=== PATIENT | male | born 1955 | race Hispanic/Latino ===

== ENCOUNTER 2018-06-07 08:52 | Outpatient (CLI) | payer MEDICARE, OTHER ==
--- NOTE | 2018-06-07 09:23 | Cat Scan Report ---
CT ABDOMEN PELVIS WITH CONTRAST: HISTORY: Prostate cancer. COMPARISON: CT abdomen pelvis report dated 07/14/13. TECHNIQUE: Helical CT in 1.25mm intervals following IV contrast. Sagittal and coronal reconstructions. FINDINGS: Lung bases: Normal. Liver: Mild diffuse fatty infiltration of the liver is again noted. No focal mass or enlargement. Biliary system: Normal. Pancreas: Normal. Spleen: Normal. Kidneys/ureters/bladder: The kidneys are normal size and position. 3 or 4 calyceal stones are noted in both kidneys measuring less than 5 mm. A 2.8 cm cyst is identified in the mid right kidney. A 3.9 cm cyst is identified in the midleft kidney the ureters and bladder are unremarkable. The prostate gland is normal size and contour. Adrenal glands: Normal. Aorta: Normal. Intestines: Within normal limits given no oral contrast was administered. Appendix: Appendectomy changes are suspected. Ascites: None. Adenopathy: None. Musculoskeletal: Intact. Moderate lumbar spondylosis. No suspicious bony lesion or fracture is identified. IMPRESSION: No evidence for metastatic disease in the abdomen and pelvis. Fatty infiltration of the liver. Bilateral renal stones, nonobstructing. Bilateral simple renal cysts.
[2018-06-07 10:01] LABS: Blood Urea Nitrogen 22 mg/dL (9-20)
== END 2018-06-07 08:53 | disposition home or self-care (01) ==
LOC: CT 08:52
DX: C61 Malignant neoplasm of prostate (principal); N28.1 Cyst of kidney, acquired; K76.0 Fatty (change of) liver, not elsewhere classified; N20.0 Calculus of kidney; M47.896 Other spondylosis, lumbar region; I10 Essential (primary) hypertension; E78.00 Pure hypercholesterolemia, unspecified; J45.909 Unspecified asthma, uncomplicated; E66.9 Obesity, unspecified; K21.9 Gastro-esophageal reflux disease without esophagitis
CPT/HCPCS: 36415; 74177; 82565; 84520; Q9967

== ENCOUNTER 2019-07-06 11:00 | Outpatient (CLI) | payer MEDICARE, OTHER | END 2019-07-06 11:01 | disposition home or self-care (01) | LOC: SLR 11:00 | PROVIDERS: ATTEND Internal Medicine | DX: G47.33 Obstructive sleep apnea (adult) (pediatric) (principal); R40.0 Somnolence; E66.9 Obesity, unspecified; E78.00 Pure hypercholesterolemia, unspecified; I10 Essential (primary) hypertension; J45.909 Unspecified asthma, uncomplicated; K21.9 Gastro-esophageal reflux disease without esophagitis | CPT/HCPCS: 95811 ==

== ENCOUNTER 2022-07-02 10:38 | Emergency (ER) | payer MEDICARE, OTHER ==
[2022-07-02 10:43] VITALS: BP 154/87
[2022-07-02] MEDS ORDERED: ACETAMINOPHEN 325 MG TAB PO PRN ×2 (13:10→14:04)
[2022-07-02] MEDS ORDERED: ONDANSETRON 4 MG/2 ML INJ IV PRN ×2 (13:10→14:04)
[2022-07-02] MEDS ORDERED: MORPHINE 2 MG/1 ML INJ IV PRN (13:13)
--- NOTE | 2022-07-02 13:16 | Progress Note ---
Assessment and Plan see uromaster severe r hydro needs stent urerteroscopy Subjective Date of service: 07/02/22 Objective - Constitutional Vitals: Vital Signs - 12hr 07/02/22 10:39 Temperature 98.4 F Pulse Rate 75 Respiratory 18 Rate Blood Pressure 154/87 [Left] O2 Sat by Pulse 97 Oximetry General appearance: Present: mild distress Medications & Allergies - Medications Allergies/Adverse Reactions: Allergies No Known Allergies Allergy (Verified 07/02/22 10:43) Home Medications: Home Medications Medication Instructions Recorded Confirmed Last Taken Type Esomeprazole Magnesium [NexIUM] 40 mg PO QDAY 06/07/14 06/14/14 06/13/14 08:00 History Ezetimibe [Zetia] 10 mg PO QDAY 06/07/14 06/14/14 06/13/14 08:00 History Fenofibrate,Micronized [Lofibra] 160 mg PO QDAY 06/07/14 06/14/14 06/13/14 08:00 History Glimepiride 1 mg PO DAILY 06/07/14 06/14/14 06/13/14 08:00 History Montelukast Sodium [Singulair] 10 mg PO DAILY 06/07/14 06/14/14 06/13/14 08:00 History Saxagliptin HCl/Metformin HCl 1 tab PO QPM 06/07/14 06/14/14 06/12/14 History [Kombiglyze XR 5-1,000 mg] Valsartan [Diovan] 160 mg PO QDAY 06/07/14 06/14/14 06/14/14 06:00 History Ofloxacin [Ocuflox 0.3%] 1 - 2 drops OP Q4HR #5 ml 12/15/16 Unknown Rx Active Medications: Generic Name Dose Route Start Last Admin Trade Name Freq PRN Reason Stop Dose Admin Acetaminophen 650 mg 07/02/22 13:10 Acetaminophen 325 Mg Tab PO Q4H PRN Pain MILD(1-3)/Fever >100.5/VAZQUEZ Ondansetron HCl 4 mg 07/02/22 13:10 Ondansetron 4 Mg/2 Ml Inj IV Q8H PRN Nausea And Vomiting Sodium Chloride 10 ml 07/02/22 22:00 Sodium Chloride 0.9% 10 Ml Flush Syringe IV BID AHSAN Sodium Chloride 10 ml 07/02/22 13:10 Sodium Chloride 0.9% 10 Ml Flush Syringe IV PRN PRN LINE FLUSH
--- NOTE | 2022-07-02 13:16 | Emergency Department Report ---
ED General Adult HPI - General Chief complaint: Abdominal Pain Stated complaint: KIDNEY STONE REMOVED PUI?: No Time Seen by Provider: 07/02/22 11:36 Source: patient Mode of arrival: Ambulatory Limitations: No Limitations - History of Present Illness Initial comments: Patient sent in by Dr. Adrian to have a cysto for a kidney stone.he was sent from urology office for severe right hydronephrosis -: Gradual Location: abdomen Radiation: non-radiation Associated Symptoms: denies other symptoms. denies: confusion, chest pain, cough - Related Data Home Medications Medication Instructions Recorded Confirmed Last Taken Esomeprazole Magnesium [NexIUM] 40 mg PO QDAY 06/07/14 06/14/14 06/13/14 08:00 Ezetimibe [Zetia] 10 mg PO QDAY 06/07/14 06/14/14 06/13/14 08:00 Fenofibrate,Micronized [Lofibra] 160 mg PO QDAY 06/07/14 06/14/14 06/13/14 08:00 Glimepiride 1 mg PO DAILY 06/07/14 06/14/14 06/13/14 08:00 Montelukast Sodium [Singulair] 10 mg PO DAILY 06/07/14 06/14/14 06/13/14 08:00 Saxagliptin HCl/Metformin HCl 1 tab PO QPM 06/07/14 06/14/14 06/12/14 [Kombiglyze XR 5-1,000 mg] Valsartan [Diovan] 160 mg PO QDAY 06/07/14 06/14/14 06/14/14 06:00 Previous Rx's Medication Instructions Recorded Last Taken Type Ofloxacin [Ocuflox 0.3%] 1 - 2 drops OP Q4HR #5 ml 12/15/16 Unknown Rx Allergies Allergy/AdvReac Type Severity Reaction Status Date / Time No Known Allergies Allergy Verified 07/02/22 10:43 ED Review of Systems ROS: Stated complaint: KIDNEY STONE REMOVED Other details as noted in HPI Constitutional: denies: chills, fever Eyes: denies: eye pain, eye discharge, vision change ENT: denies: ear pain, throat pain Respiratory: denies: cough, shortness of breath, wheezing Cardiovascular: denies: chest pain, palpitations Endocrine: no symptoms reported Gastrointestinal: denies: abdominal pain, nausea, diarrhea Genitourinary: denies: urgency, dysuria Musculoskeletal: denies: back pain, joint swelling, arthralgia Skin: denies: rash, lesions Neurological: denies: headache, weakness, paresthesias Psychiatric: denies: anxiety, depression Hematological/Lymphatic: denies: easy bleeding, easy bruising ED Past Medical Hx - Past Medical History Hx Hypertension: Yes (2001/PCP DR DANNY FRANKLIN) Hx Diabetes: No (PT DENIES DIABETES, STATES ON DIABETIC MEDS FOR WEIGHT LOSS.) Hx GERD: Yes Hx Kidney Stones: Yes Hx Asthma: Yes - Surgical History Additional Surgical History: right knee replacement - Social History Smoking Status: Never Smoker Substance Use Type: None - Medications Home Medications: Home Medications Medication Instructions Recorded Confirmed Last Taken Type Esomeprazole Magnesium [NexIUM] 40 mg PO QDAY 06/07/14 06/14/14 06/13/14 08:00 History Ezetimibe [Zetia] 10 mg PO QDAY 06/07/14 06/14/14 06/13/14 08:00 History Fenofibrate,Micronized [Lofibra] 160 mg PO QDAY 06/07/14 06/14/14 06/13/14 08:00 History Glimepiride 1 mg PO DAILY 06/07/14 06/14/14 06/13/14 08:00 History Montelukast Sodium [Singulair] 10 mg PO DAILY 06/07/14 06/14/14 06/13/14 08:00 History Saxagliptin HCl/Metformin HCl 1 tab PO QPM 06/07/14 06/14/14 06/12/14 History [Kombiglyze XR 5-1,000 mg] Valsartan [Diovan] 160 mg PO QDAY 06/07/14 06/14/14 06/14/14 06:00 History Ofloxacin [Ocuflox 0.3%] 1 - 2 drops OP Q4HR #5 ml 12/15/16 Unknown Rx ED Physical Exam - General Limitations: No Limitations General appearance: alert, in no apparent distress - Head Head exam: Present: atraumatic, normocephalic - Eye Eye exam: Present: normal appearance - ENT ENT exam: Present: mucous membranes moist - Neck Neck exam: Present: normal inspection - Respiratory Respiratory exam: Present: normal lung sounds bilaterally. Absent: respiratory distress - Cardiovascular Cardiovascular Exam: Present: regular rate, normal rhythm. Absent: systolic murmur, diastolic murmur, rubs, gallop - GI/Abdominal GI/Abdominal exam: Present: tenderness, normal bowel sounds - Rectal Rectal exam: Present: deferred - Extremities Exam Extremities exam: Present: normal inspection - Back Exam Back exam: Present: normal inspection - Neurological Exam Neurological exam: Present: alert, oriented X3 - Psychiatric Psychiatric exam: Present: normal affect, normal mood - Skin Skin exam: Present: warm, dry, intact, normal color. Absent: rash ED Course Vital Signs 07/02/22 10:39 Temperature 98.4 F Pulse Rate 75 Respiratory 18 Rate Blood Pressure 154/87 [Left] O2 Sat by Pulse 97 Oximetry Critical care attestation.: If time is entered above; I have spent that time in minutes in the direct care of this critically ill patient, excluding procedure time. ED Disposition Clinical Impression: Right flank pain, Hydronephrosis, right Disposition: 01 HOME / SELF CARE / HOMELESS Is pt being admited?: Yes Does the pt Need Aspirin: No Condition: Stable
[2022-07-02 13:36] LABS: BUN/Creatinine Ratio 23; Blood Urea Nitrogen 23 mg/dL (9-20); Calcium 9.6 mg/dL (8.4-10.2); Hemolysis Index 24
[2022-07-02] MEDS ORDERED: HYDROmorphone 0.5 MG/0.5 ML INJ IV PRN (14:04)
[2022-07-02] MEDS ORDERED: oxyCODONE /ACETAMINOPHEN 5-325MG TAB PO PRN (14:04)
[2022-07-02] MEDS ORDERED: METOCLOPRAMIDE 10 MG/2 ML INJ IV PRN (14:04)
--- NOTE | 2022-07-02 14:09 | History and Physical Report ---
History of Present Illness Date of examination: 07/02/22 History of present illness: Patient sent in by Dr. Adrian to have a cysto for a kidney stone.he was sent from urology office for severe right hydronephrosis -: Gradual Location: abdomen Radiation: non-radiation Associated Symptoms: denies other symptoms. denies: confusion, chest pain, cough - Related Data Home Medications Medication Instructions Recorded Confirmed Last Taken Esomeprazole Magnesium [NexIUM] 40 mg PO QDAY 06/07/14 06/14/14 06/13/14 08:00 Ezetimibe [Zetia] 10 mg PO QDAY 06/07/14 06/14/14 06/13/14 08:00 Fenofibrate,Micronized [Lofibra] 160 mg PO QDAY 06/07/14 06/14/14 06/13/14 08:00 Glimepiride 1 mg PO DAILY 06/07/14 06/14/14 06/13/14 08:00 Montelukast Sodium [Singulair] 10 mg PO DAILY 06/07/14 06/14/14 06/13/14 08:00 Saxagliptin HCl/Metformin HCl 1 tab PO QPM 06/07/14 06/14/14 06/12/14 [Kombiglyze XR 5-1,000 mg] Valsartan [Diovan] 160 mg PO QDAY 06/07/14 06/14/14 06/14/14 06:00 Previous Rx's Medication Instructions Recorded Last Taken Type Ofloxacin [Ocuflox 0.3%] 1 - 2 drops OP Q4HR #5 ml 12/15/16 Unknown Rx Allergies Allergy/AdvReac Type Severity Reaction Status Date / Time No Known Allergies Allergy Verified 07/02/22 10:43 ED Review of Systems ROS: Stated complaint: KIDNEY STONE REMOVED Other details as noted in HPI Constitutional: denies: chills, fever Eyes: denies: eye pain, eye discharge, vision change ENT: denies: ear pain, throat pain Respiratory: denies: cough, shortness of breath, wheezing Cardiovascular: denies: chest pain, palpitations Endocrine: no symptoms reported Gastrointestinal: denies: abdominal pain, nausea, diarrhea Genitourinary: denies: urgency, dysuria Musculoskeletal: denies: back pain, joint swelling, arthralgia Skin: denies: rash, lesions Neurological: denies: headache, weakness, paresthesias Psychiatric: denies: anxiety, depression Hematological/Lymphatic: denies: easy bleeding, easy bruising ED Past Medical Hx - Past Medical History Hx Hypertension: Yes (2001/PCP DR DANNY FRANKLIN) Hx Diabetes: No (PT DENIES DIABETES, STATES ON DIABETIC MEDS FOR WEIGHT LOSS.) Hx GERD: Yes Hx Kidney Stones: Yes Hx Asthma: Yes - Surgical History Additional Surgical History: right knee replacement - Social History Smoking Status: Never Smoker Substance Use Type: None - Medications Home Medications: Home Medications Medication Instructions Recorded Confirmed Last Taken Type Esomeprazole Magnesium [NexIUM] 40 mg PO QDAY 06/07/14 06/14/14 06/13/14 08:00 History Ezetimibe [Zetia] 10 mg PO QDAY 06/07/14 06/14/14 06/13/14 08:00 History Fenofibrate,Micronized [Lofibra] 160 mg PO QDAY 06/07/14 06/14/14 06/13/14 08:00 History Glimepiride 1 mg PO DAILY 06/07/14 06/14/14 06/13/14 08:00 History Montelukast Sodium [Singulair] 10 mg PO DAILY 06/07/14 06/14/14 06/13/14 08:00 History Saxagliptin HCl/Metformin HCl 1 tab PO QPM 06/07/14 06/14/14 06/12/14 History [Kombiglyze XR 5-1,000 mg] Valsartan [Diovan] 160 mg PO QDAY 06/07/14 06/14/14 06/14/14 06:00 History Ofloxacin [Ocuflox 0.3%] 1 - 2 drops OP Q4HR #5 ml 12/15/16 Unknown Rx Medications and Allergies Allergies Allergy/AdvReac Type Severity Reaction Status Date / Time No Known Allergies Allergy Verified 07/02/22 10:43 Home Medications Medication Instructions Recorded Confirmed Last Taken Type Esomeprazole Magnesium [NexIUM] 40 mg PO QDAY 06/07/14 06/14/14 06/13/14 08:00 History Ezetimibe [Zetia] 10 mg PO QDAY 06/07/14 06/14/14 06/13/14 08:00 History Fenofibrate,Micronized [Lofibra] 160 mg PO QDAY 06/07/14 06/14/14 06/13/14 08:00 History Glimepiride 1 mg PO DAILY 06/07/14 06/14/14 06/13/14 08:00 History Montelukast Sodium [Singulair] 10 mg PO DAILY 06/07/14 06/14/14 06/13/14 08:00 History Saxagliptin HCl/Metformin HCl 1 tab PO QPM 06/07/14 06/14/14 06/12/14 History [Kombiglyze XR 5-1,000 mg] Valsartan [Diovan] 160 mg PO QDAY 06/07/14 06/14/14 06/14/14 06:00 History Ofloxacin [Ocuflox 0.3%] 1 - 2 drops OP Q4HR #5 ml 12/15/16 Unknown Rx Active Meds: Active Medications Acetaminophen (Acetaminophen 325 Mg Tab) 650 mg PO Q4H PRN PRN Reason: Pain MILD(1-3)/Fever >100.5/VAZQUEZ Morphine Sulfate (Morphine 2 Mg/1 Ml Inj) 2 mg IV Q4H PRN PRN Reason: Pain, Moderate (4-6) Ondansetron HCl (Ondansetron 4 Mg/2 Ml Inj) 4 mg IV Q8H PRN PRN Reason: Nausea And Vomiting Sodium Chloride (Sodium Chloride 0.9% 10 Ml Flush Syringe) 10 ml IV BID AHSAN Sodium Chloride (Sodium Chloride 0.9% 10 Ml Flush Syringe) 10 ml IV PRN PRN PRN Reason: LINE FLUSH Sodium Chloride (Sodium Chloride 0.9% 10 Ml Flush Syringe) 10 ml IV PRN PRN PRN Reason: LINE FLUSH Exam - Constitutional Vitals: Temp Pulse Resp BP Pulse Ox 98.4 F 75 18 154/87 97 07/02/22 10:39 07/02/22 10:39 07/02/22 10:39 07/02/22 10:39 07/02/22 10:39 Results - Labs CBC & Chem 7: 07/02/22 12:51 Labs: Laboratory Last Values Sodium 135 mmol/L (137-145) L 07/02/22 12:51 Potassium 4.2 mmol/L (3.6-5.0) 07/02/22 12:51 Chloride 101.8 mmol/L (98-107) 07/02/22 12:51 Carbon Dioxide 19 mmol/L (22-30) L 07/02/22 12:51 Anion Gap 18 mmol/L 07/02/22 12:51 BUN 23 mg/dL (9-20) H 07/02/22 12:51 Creatinine 1.0 mg/dL (0.8-1.3) 07/02/22 12:51 Estimated GFR > 60 ml/min 07/02/22 12:51 BUN/Creatinine Ratio 23 % 07/02/22 12:51 Glucose 106 mg/dL (75-100) H 07/02/22 12:51 POC Glucose 105 mg/dL (70-105) 07/02/22 12:32 Calcium 9.6 mg/dL (8.4-10.2) 07/02/22 12:51 Amylase 98 units/L (27-131) 07/02/22 12:51 Lipase 61 units/L (13-60) H 07/02/22 12:51
[2022-07-02] MEDS ORDERED: SODIUM CHLORIDE 0.9% 1000 ML 1,000 ML IV SCH (14:15)
[2022-07-02] MEDS ORDERED: HEPARIN 5,000 UNIT/1 ML VIAL SUB-Q SCH (14:15)
== END 2022-07-02 14:32 | disposition home or self-care (01) ==
LOC: ED 10:38
DX: R10.9 Unspecified abdominal pain (principal); N13.30 Unspecified hydronephrosis; I10 Essential (primary) hypertension; J45.909 Unspecified asthma, uncomplicated
CPT/HCPCS: 36415; 80048; 82150; 82962; 83690; 99283

== ENCOUNTER 2022-07-07 06:08 | Day surgery (SDC) | payer MEDICARE, OTHER ==
[~2022-07-07 06:08] MED LIST: LACTATED RINGERS 1,000 ML IV SCH; MIDAZOLAM 2 MG/2 ML INJ IV NR
[2022-07-07] MEDS ORDERED: BACTERIOSTATIC SODIUM CHLORIDE 0.9% 30 ML VIAL INFILTRATI ONE (06:35)
[2022-07-07] MEDS ORDERED: ceFAZolin/STERILE WATER 2 GM/20 ML SYRINGE IV NR (07:00)
[2022-07-07] MEDS ORDERED: ceFAZolin/Water 2 GM/20 ML 2 GM/20 ML SYRINGE IV ONE (07:12)
[2022-07-07] MEDS ORDERED: fentaNYL 100 MCG/2 ML INJ ONE (07:17)
[2022-07-07] MEDS ORDERED: propofoL 200 MG/20 ML VIAL IV ONE (07:17)
[2022-07-07] MEDS ORDERED: HYDROcodone/ACETAMINOPHEN 5-325 MG TAB PO PRN (07:21)
[2022-07-07] MEDS ORDERED: ONDANSETRON 4 MG/2 ML INJ IV PRN (07:21)
[2022-07-07] MEDS ORDERED: fentaNYL 100 MCG/2 ML INJ IV PRN (07:21)
--- NOTE | 2022-07-07 07:21 | Anesthesia Day of Surgery ---
Anesthesia Day of Surgery - Day of Surgery Patient Examined: Yes Patient H&P Reviewed: Yes Patient is NPO: Yes
--- NOTE | 2022-07-07 07:21 | Anesthesia Consultation ---
Anesthesia Consult and Med Hx Date of service: 07/07/22 - Airway Anesthetic Teeth Evaluation: Good ROM Head & Neck: Adequate Mental/Hyoid Distance: Adequate Mallampati Class: Class III Intubation Access Assessment: Possibly Difficult - Pre-Operative Health Status ASA Pre-Surgery Classification: ASA3 Proposed Anesthetic Plan: General - Pulmonary Hx Asthma: Yes (rare inhaler use) Hx Sleep Apnea: Yes (+ CPAP) - Cardiovascular System Hx Hypertension: Yes (took valsartan this morning) - Central Nervous System CVA: No - Endocrine Hx Renal Disease: No Hx Liver Disease: No Hx Non-Insulin Dependent Diabetes: Yes Hx Thyroid Disease: No - Other Systems Hx Obesity: Yes
[2022-07-07] MEDS ORDERED: PHENYLEPHRINE/NS 1,000 MCG/10 ML SYRINGE (OR USE) IV ONE (07:41)
--- NOTE | 2022-07-07 07:50 | Discharge Summary ---
Short Stay Discharge Plan Activity: other (no straining ) Weight Bearing Status: Full Weight Bearing Diet: low fat, low cholesterol, low salt Special Instructions: other (inc fluids ) Follow up with: DANNY FRANKLIN MD [Primary Care Provider] - 7 Days KAMINI TAVARES MD [Staff Physician] - 7 Days
--- NOTE | 2022-07-07 07:51 | Post Operative Note ---
Date of procedure: 07/07/22 Pre-op diagnosis: left pain r stones Post-op diagnosis: same Findings: see note Procedure: cysto rpgs ureteroscopy Surgeon: KAMINI TAVARES Estimated blood loss: none Specimen disposition: given to patient/family Condition: stable Disposition: PACU
[2022-07-07] MEDS ORDERED: IOHEXOL 300 MG/ML 50ML IV ONE (08:25)
[2022-07-07] MEDS ORDERED: WATER FOR IRRIG STERILE 2000 ML IR ONE (08:26)
[2022-07-07] MEDS ORDERED: LIDOCAINE MPF (2%) 20 MG/1 ML VIAL 5 ML ONE (09:23)
[2022-07-07] MEDS ORDERED: ONDANSETRON 4 MG/2 ML INJ ONE (09:23)
--- NOTE | 2022-07-07 10:14 | Operative Report ---
DATE OF SURGERY: 07/07/2022 PREOPERATIVE DIAGNOSES: Large stone burden, right ureter; left flank pain; sclerosis of left rib. POSTOPERATIVE DIAGNOSES: Large stone burden, right ureter; left flank pain; sclerosis of left rib. PROCEDURES: Cystoscopy, retrograde, attempted wire on the right, found the diverticulum or pocket with lower ureteroscopy, laser of stones with eventual placement of stent, extraction of stone. SURGEON: Caleb Gatica MD. ANESTHESIA: General. FINDINGS: This is a gentleman who had severe left flank pain, had a right hydronephrosis and obstruction, now presents for treatment. All risks and implications discussed. DESCRIPTION OF PROCEDURE: The patient was brought to operating room and placed on the operating table. Following induction of anesthesia, placed in a lithotomy position and prepped and draped in the usual sterile fashion. Cystourethroscopy showed a slightly narrowed meatus. Retrograde showed a pocket, no dye went above the pocket on the right. Left side showed good drainage, delicate system. We tried getting a wire, kept coiling in this pocket. The lower ureteroscopy could not get the wire in because there was a huge stone burden, approximately 7 mm stone distally. We lasered it with a wire in the pocket. Once we took out enough stones, we got into the pocket, finally found the opening and the stent was placed. The stones were broken in many pieces. He may need a second stage. The patient tolerated the procedure well. A 6 double-J coiled, no complication. More will be left for 24 hours. TID: [id number] RECEIPT: [id number] KOFI/RIANNA/YESSENIA
--- NOTE | 2022-07-07 10:26 | Fluoroscopy Report ---
INTRAOPERATIVE FLUOROSCOPY: CYSTOGRAPHY, BILATERAL RPG S, URETEROSCOPY, STONE FRACTURING AND EXTRACTI ON AND RIGHT STENT PLACEMENT. INDICATION / CLINICAL INFORMATION: RT KIDNEY STONES. 20 mL Omnipaque 300 was used intraoperatively. TECHNIQUE: Intraoperative spot images were obtained during the procedure. FINDINGS / IMPRESSION: Retrograde bilateral ureterogram. The left is unremarkable. Retrograde contrast obstruction seen on t he right. Small negative defect seen on the right compatible with stone, extracted, bypass with wire and deployed nephroureteral stent in adequate position. Fluoroscopy Time: 6.1 minutes. Fluoroscopy Images: 13. Signer Name: Bridger Adkins MD Signed: 07/07/2022 10:22 AM Workstation Name: [id number]
--- NOTE | 2022-07-07 10:48 | XRay Report ---
LEFT RIBS 5 VIEWS INDICATION / CLINICAL INFORMATION: sclerosis. History of prostate cancer. COMPARISON: None available. FINDINGS: RIBS: No acute, displaced fracture or other acute abnormality. LUNGS: No acute findings. No pneumothorax. ADDITIONAL FINDINGS: The right-sided ureteral stent is partially visualized. IMPRESSION: 1. No acute displaced fracture. 2. If there is concern for an osseous lesion such as metastatic disease in this patient with a histor y of prostate cancer, dedicated cross-sectional imaging and/or nuclear medicine bone scan is recommen ded. This evaluation is not tailored for evaluation of metastatic disease. Signer Name: Marcos Morelos MD Signed: 07/07/2022 10:43 AM Workstation Name: [id number]
--- NOTE | 2022-07-07 11:43 | Post Anesthesia Evaluation ---
- Post Anesthesia Evaluation Patient Participated: Yes Airway Patent: Yes Stable Respiratory Function: Yes Nausea/Vomiting: No Temp > 96.8F: Yes Pain Manageable: Yes Adequeate Hydration: Yes Anesthesia Complications: No
[2022-07-07 12:37] VITALS: BP 124/75
== END 2022-07-07 11:30 | disposition home or self-care (01) ==
LOC: OR 06:08
PROVIDERS: ATTEND Urology
DX: N13.2 Hydronephrosis with renal and ureteral calculous obstruction (principal); M99.88 Other biomechanical lesions of rib cage; H40.9 Unspecified glaucoma; E78.00 Pure hypercholesterolemia, unspecified; I10 Essential (primary) hypertension; J45.909 Unspecified asthma, uncomplicated; G47.30 Sleep apnea, unspecified; E66.9 Obesity, unspecified; K21.9 Gastro-esophageal reflux disease without esophagitis; F32.9 Major depressive disorder, single episode, unspecified; E11.9 Type 2 diabetes mellitus without complications; Z79.899 Other long term (current) drug therapy; Z79.84 Long term (current) use of oral hypoglycemic drugs; Z98.49 Cataract extraction status, unspecified eye; Z68.35 Body mass index [BMI] 35.0-35.9, adult; Z85.46 Personal history of malignant neoplasm of prostate; Z96.652 Presence of left artificial knee joint; Z98.890 Other specified postprocedural states
CPT/HCPCS: 52356; 71100; 74420; 82962; C1726; C1758; C1769; C2617; J0690; J2250; J2370; J2405; J2704; J3010; J3490; J7120; Q9967